=== PATIENT | female | born 1995 | race Two or more races ===

== ENCOUNTER 2020-06-14 07:35 | Emergency (ER) | payer OTHER ==
[~2020-06-14] VITALS: Ht 154.9 cm; Wt 54.4 kg
[2020-06-14] MEDS ORDERED: ANTICONCEPTIVOS (07:57)
[2020-06-14] MEDS ORDERED: KETO10TA2 PO (16:33)
[2020-06-14] MEDS ORDERED: PEPCID AC20 MG PO (16:33)
[2020-06-14] MEDS ORDERED: INTESTINEX680 M1 PO (16:33)
[2020-06-14] MEDS ORDERED: AMOX-CLAV 875-1 EACH PO (16:33)
== END 2020-06-14 17:03 | disposition home or self-care (01) ==
LOC: ER 07:35
DX: J31.2 Chronic pharyngitis (principal); J03.80 Acute tonsillitis due to other specified organisms; E86.0 Dehydration; B96.0 Mycoplasma pneumoniae [M. pneumoniae] as the cause of diseases classified elsewhere; Z03.818 Encounter for observation for suspected exposure to other biological agents ruled out

== ENCOUNTER 2024-02-28 13:01 | Emergency (ER) | payer OTHER ==
[~2024-02-28] VITALS: Ht 154.9 cm; Wt 61.2 kg
[~2024-02-28 13:01] MED LIST: AMOX-CLAV 875-1 EACH PO; ANTICONCEPTIVOS; INTESTINEX680 M1 PO; KETO10TA2 PO; PEPCID AC20 MG PO
[2024-02-28] MEDS ORDERED: PENICILLIN G BENZATHINE LA 1.2 MMU/2 ML DISP.SYRIN IM STA (15:07)
[2024-02-28] MEDS ORDERED: ORPHENADRINE CITRATE 30 MG/ML AMPUL IM STA (15:08)
[2024-02-28] MEDS ORDERED: DEXAMETHASONE SODIUM PHOSPHATE 4 MG/ML VIAL IM STA (15:08)
[2024-02-28] MEDS ORDERED: DEXAMETHASONE SODIUM PHOSPHATE 4 MG/ML VIAL ONE (15:26)
[2024-02-28] MEDS ORDERED: ORPHENADRINE CITRATE 30 MG/ML AMPUL ONE (15:26)
[2024-02-28 15:50] LABS: HEMATOCRIT 39.2 % (36.0-45.00); HEMOGLOBIN 13.1 g/dL (12.0-15.00); MEAN CELL VOLUME 92.1 fL (80.00-100.00); MEAN CORPUSCULAR HEMOGLOBIN 30.8 pg (27.00-32.0); MEAN CORPUSCULAR HGB CONC 33.4 g/dl (32.0-36.0); PLATELET COUNT 270 K/uL (150-450); RED BLOOD COUNT 4.26 M/uL (4.00-6.00); RED CELL DISTRIBUTION WIDTH 12.6 % (11.5-14.5)
[2024-02-28] MEDS ORDERED: [UNRECOGNIZED DRUG - CODE] IM (17:17)
== END 2024-02-28 18:17 | disposition home or self-care (01) ==
LOC: ER 13:02
DX: J03.80 Acute tonsillitis due to other specified organisms (principal); B96.89 Other specified bacterial agents as the cause of diseases classified elsewhere; Z20.822 Contact with and (suspected) exposure to COVID-19